=== PATIENT | male | born 1965 | race Caucasian/White ===

== ENCOUNTER 2021-05-29 08:00 | Inpatient (IN) | payer MEDICAID ==
[2021-05-23 11:12] LABS: BASOPHILS % (AUTO) 0.5 % (0-1); EOSINOPHILS # (AUTO) 0.1 X10'3 (0-0.9); EOSINOPHILS % (AUTO) 0.9 % (0-6); LYMPHOCYTES # (AUTO) 1.6 X10'3 (1.1-4.8); LYMPHOCYTES % (AUTO) 21.6 % (21-51); MEAN CORPUSCULAR HGB CONC 34.7 g/dL (33.0-36.5); MEAN CORPUSCULAR VOLUME 100.8 FL (78-98); MONOCYTES # (AUTO) 0.4 X10'3 (0-0.9); MONOCYTES % (AUTO) 5.8 % (2-12); NEUTROPHILS # (AUTO) 5.2 X10'3 (1.8-7.7); NEUTROPHILS % (AUTO) 71.2 % (42-75); PRE OP HEMOGLOBIN 14.9 g/dL (14.0-17.9); PRE OP PLATELET COUNT 297 X10'3 (140-440); RED BLOOD COUNT 4.27 X10'6 (4.70-6.10); RED CELL DISTRIBUTION WIDTH 13.6 % (11.5-14.5)
[2021-05-23 11:20] LABS: PRE OP INR 1.1 INR; PRE OP PROTIME 10.9 SECONDS (9.0-12.0)
[2021-05-23 11:22] LABS: ALBUMIN 3.8 G/DL (3.4-5.0); ALBUMIN/GLOBULIN RATIO 1.2 (1.1-1.5); ALKALINE PHOSPHATASE 58 IU/L (46-116); BLOOD UREA NITROGEN 11 MG/DL (7-18); BUN/CREATININE RATIO 12.5 (5.4-32.0); CALCIUM 8.7 MG/DL (8.5-10.1); CHLORIDE 104 MMOL/L (99-107); CREATININE 0.88 MG/DL (0.60-1.10); PRE OP ALT 25 U/L (30-65); PRE OP ANION GAP 6 (8-16); PRE OP AST 18 U/L (10-37); PRE OP BILIRUB, TOTAL 0.7 MG/DL (0.0-1.0); PRE OP GLUCOSE 99 MG/DL (70-104); PRE OP POTASSIUM 4.4 MMOL/L (3.4-5.1); PRE OP SODIUM 140 MMOL/L (135-145); TOTAL CARBON DIOXIDE 29.7 MMOL/L (24-32); TOTAL PROTEIN 7.1 G/DL (6.4-8.2); eGFR 89 ML/MIN
[~2021-05-29] VITALS: Ht 177.8 cm; Wt 74.3 kg
[2021-05-29] VITALS (17 sets, daily range): BP systolic 91–117; BP diastolic 49–79
[~2021-05-29 08:00] MED LIST: NO HOME MEDS; ceFOXitin 2GM-NS 100mL ADDvant 100 ML IV ONE; famotidine 20mg tablet PO ONE; ringers solution, lacted 1,000 ML IV SCH
[2021-05-29] MEDS ORDERED: BUPIVAcaine/PF 2.5mg/ml (0.25%) 10ml vial ONE ×2 (11:47→12:33)
[2021-05-29] MEDS ORDERED: BUPIVACAINE liposomal/PF 13.3 MG/ML vial IM ONE (12:33)
[2021-05-29] MEDS ORDERED: sevoflurane 250ml liquid IH ONE (12:42)
[2021-05-29] MEDS ORDERED: midazolam 1 mg/ML 2ml injection ONE (12:51)
[2021-05-29] MEDS ORDERED: fentaNYL/PF 50MCG/1 ML 2ML syringe ONE (12:51)
[2021-05-29] MEDS ORDERED: LIDOcaine 2% (20mg/ml) 5ml vial ONE (13:12)
[2021-05-29] MEDS ORDERED: propofol inj 20 ML IV ONE (13:12)
[2021-05-29] MEDS ORDERED: rocuronium 10mg/ml inj IV ONE ×4 (13:12→16:22)
[2021-05-29] MEDS ORDERED: glycopyrrolate 0.2mg/ml inj ONE (13:13)
[2021-05-29] MEDS ORDERED: dexamethasone sod phosphate 4mg/ml inj. ONE (13:13)
[2021-05-29] MEDS ORDERED: ondansetron/PF 4mg/2ml inj ONE (13:13)
[2021-05-29] MEDS ORDERED: neostigmine methylsulfate 1 MG/ML 10ml vial ONE (13:13)
[2021-05-29] MEDS ORDERED: enalaprilat dihydrate 2.5mg/2ml vial IV PRN (13:45)
[2021-05-29] MEDS ORDERED: fentaNYL/PF 50MCG/1 ML 2ML syringe IV PRN ×2 (13:45)
[2021-05-29] MEDS ORDERED: ondansetron/PF 4mg/2ml inj IV PRN (13:45)
[2021-05-29] MEDS ORDERED: morphine 2 MG/ML inj. syringe IV PRN (13:45)
[2021-05-29] MEDS ORDERED: morphine 4 MG/ML inj SYRINge IV PRN (13:45)
[2021-05-29] MEDS ORDERED: ringers solution, lacted 1,000 ML IV SCH (13:45)
[2021-05-29] MEDS ORDERED: hydrALAZINE 20mg/ml inj. IV PRN (13:45)
[2021-05-29] MEDS ORDERED: morphine 10mg/ml inj. ONE (16:37)
--- NOTE | 2021-05-29 17:27 | NUR ---
Received from OR via , accompanied by Anesthesiologist DR JOHNSON and report given by Anesthesiolgist. AWAKENS TO VOICE. VITALS STABLE. DRESSINGS DI. MAINE PAIN. ABD SOFT. JOSE WITH A SM AMNT OF SERO SANG IN THE BULB.
[2021-05-29] MEDS ORDERED: ketorolac trometh. 30mg/ml inj. IV ONE ×2 (18:15→18:25)
[2021-05-29] MEDS ORDERED: acetaminophen 1,000mg/100ml IV 100 ML IV ONE (18:15)
--- NOTE | 2021-05-29 18:37 | NUR ---
Report called to receiving nurse. Transferred via BED Belongings . Special Issues communicated to receiving nurse. AWAKE AND ORIENTED. VITALS STABLE. DRESSINGS DI. STATES PAIN IMPROVING. TO SURGICAL [facility] AT THIS TIME.
--- NOTE | 2021-05-29 18:40 | NUR ---
REPORT RECEIVED FROM JONN BYRNES IN PACU. PATIENT ARRIVED ON THE UNIT WITH NO SIGN OF DISTRESS. WILL CONTINUE TO MONITOR.
[2021-05-29] MEDS: HYDROmorphone inj. 0.5 MG/0.5 ML DISP.SYRIN IV PRN (20:16)
[2021-05-29] MEDS: potassium CL 20mEq in D5-1/2NS 1,000 ML IV SCH (21:46)
[2021-05-29] MEDS: HYDROcodone/acetaminophen 10/325mg tab PO PRN (23:38)
[2021-05-29] MEDS: ceFOXitin inj 1,000 MG in dextrose 5%-water 100 ML IV SCH (23:38)
[2021-05-29] MEDS: ondansetron/PF 4mg/2ml inj IV PRN (23:43)
[2021-05-30] VITALS: BP 91/56
[2021-05-30] MEDS: potassium CL 20mEq in D5-1/2NS 1,000 ML IV SCH ×3 (02:25→19:48)
[2021-05-30] MEDS: HYDROmorphone inj. 0.5 MG/0.5 ML DISP.SYRIN IV PRN ×3 (02:33→23:47)
--- NOTE | 2021-05-30 06:01 | NUR ---
FC DISCONTINUED AT 0540
--- NOTE | 2021-05-30 06:02 | NUR ---
FC DISCONTINUED AT 0540 Addendum: 05/30/21 at 0604 by Josephine Aguilar RN Amended: Links added.
[2021-05-30 06:03] LABS: BASOPHILS % (AUTO) 0.1 % (0-1); EOSINOPHILS % (AUTO) 0 % (0-6); HEMATOCRIT 39.7 % (42.0-52.0); HEMOGLOBIN 13.8 g/dl (14.0-17.9); LYMPHOCYTES # (AUTO) 0.6 X10'3 (1.1-4.8); LYMPHOCYTES % (AUTO) 6.7 % (21-51); MEAN CORPUSCULAR HEMOGLOBIN 35.4 PG (27.0-31.0); MEAN CORPUSCULAR HGB CONC 34.7 g/dL (33.0-36.5); MEAN PLATELET VOLUME 7.4 FL (7.4-10.4); MONOCYTES # (AUTO) 0.6 X10'3 (0-0.9); MONOCYTES % (AUTO) 5.7 % (2-12); NEUTROPHILS # (AUTO) 8.4 X10'3 (1.8-7.7); NEUTROPHILS % (AUTO) 87.5 % (42-75); PLATELET COUNT 258 X10'3 (140-440); RED BLOOD COUNT 3.89 X10'6 (4.70-6.10); RED CELL DISTRIBUTION WIDTH 13.2 % (11.5-14.5); WHITE BLOOD COUNT 9.6 X10'3 (4.5-11.0)
--- NOTE | 2021-05-30 06:13 | NUR ---
Problems reprioritized. Patient report given, questions answered & plan of care reviewed with MARGARETH BYRNES.
--- NOTE | 2021-05-30 06:45 | NUR ---
Patient in room [facility]. I have received report from SONIYA VILLASEÑOR and had the opportunity to ask questions and assume patient care.
[2021-05-30 07:00] VITALS: BP 86/41
[2021-05-30 07:06] LABS: ALBUMIN 3.2 G/DL (3.4-5.0); ANION GAP 9 (8-16); BLOOD UREA NITROGEN 15 MG/DL (7-18); BUN/CREATININE RATIO 15.8 (5.4-32.0); CALCIUM 8.5 MG/DL (8.5-10.1); CHLORIDE 106 MMOL/L (99-107); CREATININE 0.95 MG/DL (0.60-1.10); GLUCOSE 158 MG/DL (70-104); POTASSIUM 4.4 MMOL/L (3.5-5.1); SODIUM 139 MMOL/L (135-145); TOTAL CARBON DIOXIDE 23.9 MMOL/L (24-32); eGFR 81 ML/MIN
[2021-05-30] MEDS: ceFOXitin inj 1,000 MG in dextrose 5%-water 100 ML IV SCH (08:46)
[2021-05-30 11:00] VITALS: BP 97/54
[2021-05-30] MEDS ORDERED: LIDOcaine 2% 10ml TOPICAL JELLY (Urojet) MM ONE (14:15)
[2021-05-30] MEDS: tamsulosin 0.4mg capsule PO SCH ×2 (15:39→20:50)
[2021-05-30 18:00] VITALS: BP 123/64
--- NOTE | 2021-05-30 18:34 | NUR ---
Problems reprioritized. Patient report given, questions answered & plan of care reviewed with SONIYA MAGANA & SONIYA VILLASEÑOR.
--- NOTE | 2021-05-30 18:48 | NUR ---
Patient in room [facility]. I have received report from Mague BYRNES and had the opportunity to ask questions and assume patient care.
--- NOTE | 2021-05-30 19:14 | NUR ---
Patient in room [facility]. I have received report from MARGARETH BYRNES and had the opportunity to ask questions and assume patient care.
[2021-05-30] MEDS: ceFOXitin 2GM-NS 100mL ADDvant 100 ML IV SCH (19:47)
--- NOTE | 2021-05-30 20:57 | NUR ---
40 mL out sanguineous Addendum: 05/30/21 at 2059 by Leandro Valente RN Amended: Links added.
--- NOTE | 2021-05-30 23:00 | NUR ---
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
[2021-05-31] VITALS: BP 111/65
[2021-05-31] MEDS: ceFOXitin 2GM-NS 100mL ADDvant 100 ML IV SCH ×4 (02:04→20:27)
[2021-05-31] MEDS: potassium CL 20mEq in D5-1/2NS 1,000 ML IV SCH ×4 (02:25→20:31)
[2021-05-31] MEDS: ondansetron/PF 4mg/2ml inj IV PRN ×3 (02:48→15:13)
--- NOTE | 2021-05-31 02:54 | NUR ---
90 mL output serosanguineous Addendum: 05/31/21 at 0255 by Leandro Valente RN Amended: Links added.
[2021-05-31] MEDS ORDERED: LIDOcaine 2% 10ml TOPICAL JELLY (Urojet) MM ONE (04:30)
--- NOTE | 2021-05-31 04:45 | NUR ---
Pt was feeling nauseated and was more distended than usual. Pt put out 200 mL in urinal and we bladder scanned 622 mL after his void. We straight cathed and was able to get 900 ml out. Pt is feeling better
--- NOTE | 2021-05-31 06:29 | NUR ---
Problems reprioritized. Patient report given, questions answered & plan of care reviewed with MARGARETH BYRNES.
--- NOTE | 2021-05-31 06:35 | NUR ---
Patient in room [facility]. I have received report from SONIYA VILLASEÑOR & SONIYA MAGANA and had the opportunity to ask questions and assume patient care.
[2021-05-31 06:36] LABS: BASOPHILS % (AUTO) 0.2 % (0-1); EOSINOPHILS % (AUTO) 0 % (0-6); HEMATOCRIT 41.6 % (42.0-52.0); HEMOGLOBIN 14.1 g/dl (14.0-17.9); LYMPHOCYTES # (AUTO) 0.6 X10'3 (1.1-4.8); LYMPHOCYTES % (AUTO) 4.5 % (21-51); MEAN CORPUSCULAR VOLUME 102.8 FL (78-98); MEAN PLATELET VOLUME 7.5 FL (7.4-10.4); MONOCYTES # (AUTO) 0.8 X10'3 (0-0.9); MONOCYTES % (AUTO) 5.6 % (2-12); NEUTROPHILS # (AUTO) 12.8 X10'3 (1.8-7.7); NEUTROPHILS % (AUTO) 89.7 % (42-75); PLATELET COUNT 260 X10'3 (140-440); RED BLOOD COUNT 4.04 X10'6 (4.70-6.10); RED CELL DISTRIBUTION WIDTH 13.4 % (11.5-14.5); WHITE BLOOD COUNT 14.2 X10'3 (4.5-11.0)
[2021-05-31 06:53] LABS: ALBUMIN 3.2 G/DL (3.4-5.0); ANION GAP 8 (8-16); BLOOD UREA NITROGEN 9 MG/DL (7-18); BUN/CREATININE RATIO 10.7 (5.4-32.0); CALCIUM 7.8 MG/DL (8.5-10.1); CHLORIDE 104 MMOL/L (99-107); CREATININE 0.84 MG/DL (0.60-1.10); GLUCOSE 139 MG/DL (70-104); SODIUM 136 MMOL/L (135-145); TOTAL CARBON DIOXIDE 24.4 MMOL/L (24-32); eGFR > 90 ML/MIN
[2021-05-31] MEDS: HYDROmorphone inj. 0.5 MG/0.5 ML DISP.SYRIN IV PRN ×2 (07:21→20:27)
[2021-05-31 08:00] VITALS: BP 122/75
[2021-05-31 11:00] VITALS: BP 114/68
[2021-05-31 18:00] VITALS: BP 118/70
--- NOTE | 2021-05-31 18:22 | NUR ---
Patient in room [facility]. I have received report from Mague BYRNES and had the opportunity to ask questions and assume patient care.
--- NOTE | 2021-05-31 18:51 | NUR ---
Patient in room [facility]. I have received report from MARGARETH BYRNES and had the opportunity to ask questions and assume patient care.
[2021-05-31] MEDS ORDERED: proCHLORperazine 10 MG/2 ml inj IV PRN (19:10)
--- NOTE | 2021-05-31 19:19 | NUR ---
Problems reprioritized. Patient report given, questions answered & plan of care reviewed with SONIYA VILLASEÑOR & SONIYA MAGANA.
[2021-05-31] MEDS: tamsulosin 0.4mg capsule PO SCH (20:26)
[2021-05-31] MEDS: lactobacillus rhamnosus 10,000 MMU CELLS/CAPSULE PO SCH (20:27)
[2021-06-01] VITALS: BP 114/67
[2021-06-01] MEDS: ceFOXitin 2GM-NS 100mL ADDvant 100 ML IV SCH ×4 (01:33→19:23)
[2021-06-01] MEDS: potassium CL 20mEq in D5-1/2NS 1,000 ML IV SCH ×2 (04:58→17:35)
--- NOTE | 2021-06-01 06:28 | NUR ---
Problems reprioritized. Patient report given, questions answered & plan of care reviewed with MARGARETH BYRNES.
[2021-06-01 06:36] LABS: BASOPHILS % (AUTO) 0 % (0-1); EOSINOPHILS % (AUTO) 0.3 % (0-6); HEMATOCRIT 40.7 % (42.0-52.0); LYMPHOCYTES % (AUTO) 8.7 % (21-51); MEAN CORPUSCULAR HEMOGLOBIN 34.8 PG (27.0-31.0); MEAN CORPUSCULAR HGB CONC 34.3 g/dL (33.0-36.5); MEAN CORPUSCULAR VOLUME 101.4 FL (78-98); MEAN PLATELET VOLUME 7.3 FL (7.4-10.4); MONOCYTES # (AUTO) 0.9 X10'3 (0-0.9); MONOCYTES % (AUTO) 7.4 % (2-12); NEUTROPHILS # (AUTO) 9.7 X10'3 (1.8-7.7); NEUTROPHILS % (AUTO) 83.6 % (42-75); PLATELET COUNT 260 X10'3 (140-440); RED BLOOD COUNT 4.01 X10'6 (4.70-6.10); RED CELL DISTRIBUTION WIDTH 13.2 % (11.5-14.5); WHITE BLOOD COUNT 11.6 X10'3 (4.5-11.0)
[2021-06-01 06:40] LABS: ALBUMIN 2.7 G/DL (3.4-5.0); ANION GAP 9 (8-16); BLOOD UREA NITROGEN 7 MG/DL (7-18); BUN/CREATININE RATIO 9.2 (5.4-32.0); CALCIUM 7.7 MG/DL (8.5-10.1); CHLORIDE 105 MMOL/L (99-107); CREATININE 0.76 MG/DL (0.60-1.10); GLUCOSE 117 MG/DL (70-104); POTASSIUM 3.9 MMOL/L (3.5-5.1); SODIUM 138 MMOL/L (135-145); TOTAL CARBON DIOXIDE 24.4 MMOL/L (24-32); eGFR > 90 ML/MIN
[2021-06-01] MEDS: HYDROcodone/acetaminophen 10/325mg tab PO PRN ×2 (06:43→19:22)
--- NOTE | 2021-06-01 06:45 | NUR ---
Patient in room [facility]. I have received report from SONIYA VILLASEÑOR & SONIYA MAGANA and had the opportunity to ask questions and assume patient care.
[2021-06-01 07:00] VITALS: BP 121/69
[2021-06-01] MEDS: lactobacillus rhamnosus 10,000 MMU CELLS/CAPSULE PO SCH ×2 (08:09→19:22)
[2021-06-01 11:00] VITALS: BP 125/69
--- NOTE | 2021-06-01 18:10 | NUR ---
Patient in room [facility]. I have received report from SONIYA Bowser and had the opportunity to ask questions and assume patient care.
[2021-06-01 18:30] VITALS: BP 111/52
--- NOTE | 2021-06-01 18:47 | NUR ---
Problems reprioritized. Patient report given, questions answered & plan of care reviewed with SONIYA GIVENS.
--- NOTE | 2021-06-01 19:06 | NUR ---
Kieran into see patient. OK to saline lock and move to regular diet. Pt having black stool. MD aware. H/H stable. No new orders.
[2021-06-01] MEDS: tamsulosin 0.4mg capsule PO SCH (21:13)
[2021-06-02] VITALS: BP 109/60
[2021-06-02] MEDS: ceFOXitin 2GM-NS 100mL ADDvant 100 ML IV SCH ×4 (01:49→20:05)
[2021-06-02] MEDS: HYDROcodone/acetaminophen 10/325mg tab PO PRN ×3 (02:41→21:36)
[2021-06-02 06:00] VITALS: BP 106/59
--- NOTE | 2021-06-02 06:43 | NUR ---
Problems reprioritized. Patient report given, questions answered & plan of care reviewed with SONIYA Anderson.
[2021-06-02 07:07] LABS: BASOPHILS % (AUTO) 0.3 % (0-1); EOSINOPHILS # (AUTO) 0.2 X10'3 (0-0.9); EOSINOPHILS % (AUTO) 1.9 % (0-6); HEMATOCRIT 37.5 % (42.0-52.0); HEMOGLOBIN 12.9 g/dl (14.0-17.9); LYMPHOCYTES # (AUTO) 1.2 X10'3 (1.1-4.8); LYMPHOCYTES % (AUTO) 12.2 % (21-51); MEAN CORPUSCULAR HEMOGLOBIN 35.6 PG (27.0-31.0); MEAN CORPUSCULAR HGB CONC 34.5 g/dL (33.0-36.5); MEAN CORPUSCULAR VOLUME 103.3 FL (78-98); MEAN PLATELET VOLUME 7.6 FL (7.4-10.4); MONOCYTES # (AUTO) 0.8 X10'3 (0-0.9); NEUTROPHILS # (AUTO) 7.5 X10'3 (1.8-7.7); NEUTROPHILS % (AUTO) 77.6 % (42-75); PLATELET COUNT 254 X10'3 (140-440); RED BLOOD COUNT 3.63 X10'6 (4.70-6.10); RED CELL DISTRIBUTION WIDTH 12.8 % (11.5-14.5); WHITE BLOOD COUNT 9.7 X10'3 (4.5-11.0)
[2021-06-02 07:33] LABS: ALBUMIN 2.6 G/DL (3.4-5.0); ANION GAP 7 (8-16); BLOOD UREA NITROGEN 5 MG/DL (7-18); BUN/CREATININE RATIO 6.3 (5.4-32.0); CALCIUM 7.6 MG/DL (8.5-10.1); CHLORIDE 105 MMOL/L (99-107); CREATININE 0.79 MG/DL (0.60-1.10); GLUCOSE 91 MG/DL (70-104); POTASSIUM 3.7 MMOL/L (3.5-5.1); SODIUM 138 MMOL/L (135-145); TOTAL CARBON DIOXIDE 25.9 MMOL/L (24-32); eGFR > 90 ML/MIN
[2021-06-02] MEDS: lactobacillus rhamnosus 10,000 MMU CELLS/CAPSULE PO SCH ×2 (08:51→20:05)
[2021-06-02 11:06] VITALS: BP 126/72
[2021-06-02 18:30] VITALS: BP 115/56
[2021-06-02] MEDS: tamsulosin 0.4mg capsule PO SCH (20:05)
[2021-06-02 23:39] VITALS: BP 112/50
[2021-06-03] MEDS: ceFOXitin 2GM-NS 100mL ADDvant 100 ML IV SCH ×3 (01:03→14:37)
--- NOTE | 2021-06-03 01:55 | NUR ---
Patient in room [facility]. I have received report from SONIYA Carpenter and had the opportunity to ask questions and assume patient care.
--- NOTE | 2021-06-03 01:57 | NUR ---
Problems reprioritized. Patient report given, questions answered & plan of care reviewed with SONIYA Kaminski.
[2021-06-03 06:12] LABS: BASOPHILS % (AUTO) 0.3 % (0-1); EOSINOPHILS # (AUTO) 0.3 X10'3 (0-0.9); EOSINOPHILS % (AUTO) 3.6 % (0-6); HEMATOCRIT 40.8 % (42.0-52.0); HEMOGLOBIN 14.2 g/dl (14.0-17.9); LYMPHOCYTES # (AUTO) 1.2 X10'3 (1.1-4.8); LYMPHOCYTES % (AUTO) 15.8 % (21-51); MEAN CORPUSCULAR HEMOGLOBIN 35.7 PG (27.0-31.0); MEAN CORPUSCULAR HGB CONC 34.7 g/dL (33.0-36.5); MEAN CORPUSCULAR VOLUME 102.9 FL (78-98); MEAN PLATELET VOLUME 7.3 FL (7.4-10.4); MONOCYTES # (AUTO) 0.7 X10'3 (0-0.9); NEUTROPHILS # (AUTO) 5.2 X10'3 (1.8-7.7); NEUTROPHILS % (AUTO) 70.3 % (42-75); PLATELET COUNT 290 X10'3 (140-440); RED BLOOD COUNT 3.97 X10'6 (4.70-6.10); RED CELL DISTRIBUTION WIDTH 13.3 % (11.5-14.5); WHITE BLOOD COUNT 7.5 X10'3 (4.5-11.0)
--- NOTE | 2021-06-03 06:12 | NUR ---
Problems reprioritized. Patient report given, questions answered & plan of care reviewed with SONIYA Shaver.
[2021-06-03 06:31] LABS: ANION GAP 8 (8-16); BLOOD UREA NITROGEN 6 MG/DL (7-18); BUN/CREATININE RATIO 6.3 (5.4-32.0); CALCIUM 8.4 MG/DL (8.5-10.1); CHLORIDE 103 MMOL/L (99-107); CREATININE 0.95 MG/DL (0.60-1.10); GLUCOSE 98 MG/DL (70-104); POTASSIUM 3.8 MMOL/L (3.5-5.1); SODIUM 139 MMOL/L (135-145); TOTAL CARBON DIOXIDE 27.9 MMOL/L (24-32); eGFR 81 ML/MIN
[2021-06-03 07:20] VITALS: BP 125/67
[2021-06-03] MEDS: HYDROcodone/acetaminophen 10/325mg tab PO PRN ×2 (07:24→21:25)
[2021-06-03] MEDS: lactobacillus rhamnosus 10,000 MMU CELLS/CAPSULE PO SCH ×2 (07:24→21:24)
[2021-06-03 11:56] VITALS: BP 106/57
--- NOTE | 2021-06-03 13:38 | NUR ---
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 Pt initially on a clear liquid diet and with inadequate PO intake however diet has been advanced to regular and pt with average 67% PO intake since diet advancement. LBM 06/02, documented as small though with diarrhea and tarry in appearance, MD aware. No nutrition intervention implemented at this time. Will continue to follow closely and make recommendations as appropriate pending further trends in PO intake. Recommendations: 1) Diet change to low fiber/low residue in view of recent GI surgery 2) Monitor need for ONS/additional protein 3) Bowel care per rx 4) Weekly scaled weights Addendum: 06/03/21 at [address] Amended: Links added.
[2021-06-03 18:00] VITALS: BP 111/50
--- NOTE | 2021-06-03 18:27 | NUR ---
Problems reprioritized. Patient report given, questions answered & plan of care reviewed with SONIYA Kaminski.
--- NOTE | 2021-06-03 18:45 | NUR ---
Patient in room [facility]. I have received report from SONIYA Shaver and had the opportunity to ask questions and assume patient care.
[2021-06-03] MEDS: tamsulosin 0.4mg capsule PO SCH (21:23)
[2021-06-03] MEDS ORDERED: acetaminophen 325mg tablet PO PRN (21:25)
--- NOTE | 2021-06-03 22:53 | NUR ---
Changed dressing to old JOSE drain site on left abd x 2. Draining.
[2021-06-04] VITALS: BP 119/60
[2021-06-04] MEDS: HYDROcodone/acetaminophen 10/325mg tab PO PRN (05:16)
--- NOTE | 2021-06-04 06:09 | NUR ---
Problems reprioritized. Patient report given, questions answered & plan of care reviewed with SONIYA Shaver.
[2021-06-04 06:25] LABS: BASOPHILS % (AUTO) 0.3 % (0-1); EOSINOPHILS # (AUTO) 0.2 X10'3 (0-0.9); EOSINOPHILS % (AUTO) 3.1 % (0-6); HEMATOCRIT 38.7 % (42.0-52.0); HEMOGLOBIN 13.5 g/dl (14.0-17.9); LYMPHOCYTES # (AUTO) 1.1 X10'3 (1.1-4.8); LYMPHOCYTES % (AUTO) 14.8 % (21-51); MEAN CORPUSCULAR HEMOGLOBIN 35.4 PG (27.0-31.0); MEAN CORPUSCULAR HGB CONC 34.9 g/dL (33.0-36.5); MEAN CORPUSCULAR VOLUME 101.2 FL (78-98); MEAN PLATELET VOLUME 7.1 FL (7.4-10.4); MONOCYTES # (AUTO) 0.7 X10'3 (0-0.9); MONOCYTES % (AUTO) 8.9 % (2-12); NEUTROPHILS # (AUTO) 5.5 X10'3 (1.8-7.7); NEUTROPHILS % (AUTO) 72.9 % (42-75); PLATELET COUNT 288 X10'3 (140-440); RED BLOOD COUNT 3.82 X10'6 (4.70-6.10); RED CELL DISTRIBUTION WIDTH 13.2 % (11.5-14.5); WHITE BLOOD COUNT 7.6 X10'3 (4.5-11.0)
[2021-06-04 07:18] VITALS: BP 113/61
[2021-06-04] MEDS: lactobacillus rhamnosus 10,000 MMU CELLS/CAPSULE PO SCH (08:00)
[2021-06-04 10:30] VITALS: BP 114/53
--- NOTE | 2021-06-04 10:45 | NUR ---
PATIENT STABLE AND APPROPRIATE FOR DISCHARGE HOME WITH . IV REMOVED, ALL BELONGINGS TAKEN FROM ROOM. NEW PRESCRIPTIONS CALLED INTO PREFERRED PHARMACY BY DR. MARQUIS'S OFFICE. ALL DISCHARGE INSTRUCTIONS AND EDUCATION GIVEN AND REVIEWED WITH PATIENT AND , ALL QUESTIONS ANSWERED.
== END 2021-06-04 10:45 | disposition home or self-care (01) | DRG 231 ==
LOC: PAS IN 10:01 → UNDOADMIN 10:01 → SUR 3N 19:01
PROVIDERS: ADMIT Surgery; ATTEND Surgery
PROC: 8E0W4CZ Robotic Assisted Procedure of Trunk Region, Percutaneous Endoscopic Approach (ICD-10-PCS; 2021-05-29)
PROC: 3E0T3BZ Introduction of Anesthetic Agent into Peripheral Nerves and Plexi, Percutaneous Approach (ICD-10-PCS; 2021-05-29)
PROC: 3E0T33Z Introduction of Anti-inflammatory into Peripheral Nerves and Plexi, Percutaneous Approach (ICD-10-PCS; 2021-05-29)
PROC: 0DTF4ZZ Resection of Right Large Intestine, Percutaneous Endoscopic Approach (ICD-10-PCS; principal; 2021-05-29 12:42)
DX: D12.6 Benign neoplasm of colon, unspecified (principal); R71.0 Precipitous drop in hematocrit; K62.5 Hemorrhage of anus and rectum; R11.0 Nausea
CPT/HCPCS: 36415; 71046; 80048; 80053; 82948; 85025; 85610; 85730; 86885; 86900; 86901; 87081; 93005; A4215; A4618; C1758; C9290; G0378; J0131; J0694; J1100; J1170; J2001; J2250; J2270; J2405; J2704; J2710; J3010; J3480; J3490; J7060; J7120; U0003; U0005